=== PATIENT | female | born 1980 | race Caucasian/White ===

== ENCOUNTER 2017-07-06 13:55 | Inpatient (IN) | payer OTHER ==
[~2017-07-06] VITALS: Ht 165.1 cm; Wt 70.8 kg
[2017-07-06] MEDS ORDERED: PRENATAL TABLE1 EAC2 (14:42)
[2017-07-06 16:01] LABS: ABSOLUTE BASOPHIL COUNT 0 /CUMM (0.0-0.2); ABSOLUTE EOSINOPHIL COUNT 0.1 /CUMM (0.0-0.7); ABSOLUTE GRANULOCYTE CT 10.3 /CUMM (1.4-6.5); ABSOLUTE LYMPH COUNT 1.7 /CUMM (1.2-3.4); ABSOLUTE MONOCYTE COUNT 0.8 /CUMM (0.10-0.60); BASOPHIL % 0.4 % (0.0-2.0); EOSINOPHIL % 0.6 % (0-5); GRANULOCYTE % 79.9 % (42.2-75.2); MEAN CORPUSCULAR HGB 26.3 PG (27.0-31.0); MEAN CORPUSCULAR HGB CONC 33.6 G/DL (33.0-37.0); MEAN CORPUSCULAR VOLUME 78.2 FL (81.0-99.0); MEAN PLATELET VOLUME 9.4 FL (7.4-10.4); PLATELET COUNT 241 /CUMM (130-400); RBC DISTRIBUTION WIDTH 14.7 % (11.5-14.5); RED BLOOD CELL CT 4.22 /CUMM (4.20-5.40); WHITE BLOOD CELL COUNT 12.9 /CUMM (4.8-10.8)
--- NOTE | 2017-07-06 18:51 | History & Physical ---
General Information and HPI MD Statement: I have seen and personally examined MADINA ZAMBRANO and documented this H&P. The patient is a 37 year old female at [40] weeks and [5] days gestation who presented with a chief complaint of [LOF]. Source of Information: patient Exam Limitations: no limitations History of Present Illness: 37yo, 40 5/7wks, c/o LOF since 10PM yesterday, irregular ctxs, denies VB, reports GFM came in PM for evaluation. amnisure positive care started at 9 wks, AMA, otherwise uncomplicated course. GBS negative Allergies/Medications Allergies: Coded Allergies: No Known Allergies (07/06/17) Home Med list Vit No.130/Iron/FA ( Tablet) 27 MG IRON-800 MCG TABLET ADRENAL FAILURE (Reported) Compliance With Home Meds: GOOD Past History potato pancake frier History : 3 Para: 1 Last Menstrual Period: 09/24/2016 Estimated Delivery Date: 07/01/2017 Past potato pancake frier History: non-contributory Past Pregnancies Past Pregnancies: Date of Delivery: 03/24/2014 Gestational Age: 39 5/7wks Weight: [id number] Type of Delivery: vaginal Complications: none Medical History Blood Transfusion Hx: No Neurological: NONE EENT: NONE Cardiovascular: NONE Respiratory: NONE Gastrointestinal: NONE Hepatic: NONE Renal: NONE Musculoskeletal: NONE Psychiatric: NONE Endocrine: hypothyroidism Blood Disorders: NONE Cancer(s): NONE 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 Home Smoking Status: Former Smoker ETOH Use: denies use Illicit Drug Use: denies illicit drug use Review of Systems Review of Systems Constitutional: Reports: no symptoms. EENTM: Reports: no symptoms. Cardiovascular: Reports: no symptoms. Respiratory: Reports: no symptoms. GI: Reports: no symptoms. Genitourinary: Reports: see HPI. Musculoskeletal: Reports: no symptoms. Skin: Reports: no symptoms. Neurological/Psychological: Reports: no symptoms. Hematologic/Endocrine: Reports: no symptoms. Immunologic/Allergic: Reports: no symptoms. All Other Systems: Reviewed and Negative Exam & Diagnostic Data Last 24 Hrs of Vital Signs/I&O Intake & Output 07/06 1600 07/06 0800 07/06 0000 Intake Total Output Total Balance Patient 70.76 kg Weight Obstetric Exam Wgt Gained During : 34 lbs Pelvimetry: tested [id number] Dilation (cm): 3 Effacement (%): 80 Station: -2 Membranes: SROM Fluid: clear Fundal Height (cm): 40 Multiple Gestation? No Contractions: irregular Infant #1 - FHR Baseline: 130 Category: 1 Estimated Weight: 3500g Presentation: vertex Patient for Induction? No Physical Exam: VSS general: NAD Abdomen: gravid, soft, nontender. ext: DCT (-) Labs Blood Type & Rh: B positive Antibody Screen: negative Hct/Hgb & Platelets #1: 15/44.5%,PLT [id number] Hct/Hgb & Platelets #2: 10.6/32.7%,[id number] Rubella: immune VDRL #1: negative VDRL #2: neagtive HbsAg: negative HIV #1: negative HIV #2 negative 1 Hr P Group B Strep: negative Initial Ultrasound: IUP at 9 wks Anatomy Ultrasound: nl Genetic Testing: negative Last 24 Hrs of Labs/[place]: Laboratory Tests 07/06/17 1447: CBC w Diff NO MAN DIFF REQ, RBC 4.22, MCV 78.2 L, MCH 26.3 L, MCHC 33.6, RDW 14.7 H, MPV 9.4, Gran % 79.9 H, Lymphocytes % 12.9 L, Monocytes % 6.2, Eosinophils % 0.6, Basophils % 0.4, Absolute Granulocytes 10.3 H, Absolute Lymphocytes 1.7, Absolute Monocytes 0.8 H, Absolute Eosinophils 0.1, Absolute Basophils 0, Urine Color YEL, Urine Clarity CLEAR, Urine pH 6.5, Ur Specific [place] 1.010, Urine Protein NEG, Urine Ketones NEG, Urine Nitrite NEG, Urine Bilirubin NEG, Urine Urobilinogen 0.2, Ur Leukocyte Esterase NEG, Ur Microscopic SEDIMENT EXAMINED, Urine RBC 1-3, Urine WBC 1-3 H, Ur Epithelial Cells FEW, Urine Hemoglobin SMALL H, Urine Glucose NEG 07/06/17 1410: Membrane Rupture POSITIVE Assessment/Plan Assessment/Plan: 37yo, 40 5/7wks, SROM 1. admit pt, admission labs 2. pain management as needed 3. may consider pitocin augmentation, will monitor closely As Ranked By This Provider Problem List: 1. 2. SROM (spontaneous rupture of membranes) Core Measures Venous Thromboembolism VTE Risk Factors / No Mechanical VTE Prophylaxis d/t LowRisk-No Interven Req'd No VTE Pharm Prophylaxis d/t LowRisk-No Interven Req'd Attending MD Review Statement Attending Statement Attending MD Statement: examined this patient, discussed with family, discussed w/nursing
--- NOTE | 2017-07-07 07:04 | PN- OBGYN ---
Surgical Brief Attending Note Brief Attending Note: Pt c/o rectal pressure. on TOCO: ctxs q 3 min, FHR baseline 120, moderate variability, + acels, no decels cervix 9/80%/0 will continue current management, monitor closely
--- NOTE | 2017-07-07 09:45 | Labor & Delivery Summary ---
Delivery Summary Vaginal Delivery: Vaginal: spontaneous Episiotomy/Lacerations: Episiotomy/Lacerations: none Type: INTACT Repair: NONE Anesthesia: EPIDURAL Placenta: Placenta: spontanteous, normal, 3 vessel, nuchal cord (x_) (2) Anesthesia: block Baby's Weight: 8# 9OZ Apgars - 1 Min: 8 Apgars - 5 Min: 9 Additional Comments: NUCHAL ARM AND CORD X2 LOOSE GOOD PUSHING WITH EPIDURAL conrad POSITION INTACT PERINUM
[2017-07-07 10:33] VITALS: BP 124/84
[2017-07-08 08:18] LABS: ABSOLUTE BASOPHIL COUNT 0 /CUMM (0.0-0.2); ABSOLUTE EOSINOPHIL COUNT 0.2 /CUMM (0.0-0.7); ABSOLUTE GRANULOCYTE CT 6.6 /CUMM (1.4-6.5); ABSOLUTE LYMPH COUNT 2.4 /CUMM (1.2-3.4); ABSOLUTE MONOCYTE COUNT 0.8 /CUMM (0.10-0.60); BASOPHIL % 0.4 % (0.0-2.0); EOSINOPHIL % 1.7 % (0-5); GRANULOCYTE % 65.9 % (42.2-75.2); HEMATOCRIT 29.7 % (37-47); MEAN CORPUSCULAR HGB 26.1 PG (27.0-31.0); MEAN CORPUSCULAR HGB CONC 32.7 G/DL (33.0-37.0); MEAN CORPUSCULAR VOLUME 79.9 FL (81.0-99.0); MEAN PLATELET VOLUME 9.5 FL (7.4-10.4); PLATELET COUNT 214 /CUMM (130-400); RBC DISTRIBUTION WIDTH 15.2 % (11.5-14.5); RED BLOOD CELL CT 3.72 /CUMM (4.20-5.40); WHITE BLOOD CELL COUNT 9.9 /CUMM (4.8-10.8)
--- NOTE | 2017-07-08 09:17 | PN- Post Delivery/GYN ---
Subjective Subjective: doing well, no complaints, tolerate diet , void without difficulty, ambulating well Review of Systems Constitutional: Reports: no symptoms. EENTM: Reports: no symptoms. Cardiovascular: Reports: no symptoms. Respiratory: Reports: no symptoms. Gastrointestinal: Reports: no symptoms. Genitourinary: Reports: see HPI. Musculoskeletal: Reports: no symptoms. Skin: Reports: no symptoms. Neurological/Psychological: Reports: no symptoms. All Other Systems: Reviewed and Negative Objective Last 24 Hrs of Vital Signs/I&O Vital Signs Date Time Temp Pulse Resp B/P B/P Pulse O2 O2 Flow FiO2 Mean Ox Delivery Rate 07/07 1033 124/84 Physical Exam: VSS General: NAD CV RRR Lungs CTA B/L Abdomen: soft, nontender, uterus firm, fundus below umbilicus, lochia mild Ext: DCT (-) Current Medications: Current Medications Sig/Laurie Start time Last Medication Dose Route Stop Time Status Admin Acetaminophen 650 MG Q4P PRN 07/07 0930 AC 07/07 PO 1950 Docusate Sodium 100 MG BID PRN 07/07 0930 AC PO Hydroxyzine HCl 50 MG AT BEDTIME NEED.. 07/07 0930 AC PO Ibuprofen 800 MG Q6P PRN 07/07 0930 AC 07/08 PO 0449 Lactated Ringer's 1,000 ML Q8H 07/06 1445 DC 07/07 IV 0524 Magnesium Hydroxide 30 ML DAILY PRN 07/07 0930 AC PO Methylergonovine 0.2 MG .STK-MED ONE 07/07 1116 DC Maleate IM 07/07 1117 Oxytocin 20 UNITS Q5H 07/07 0930 DC 07/07 Lactated Ringer's 1,000 ML IV 07/07 1429 1030 Oxytocin 30 UNITS PER PROTOCL 07/07 0005 DC 07/06 Lactated Ringer's 500 ML IV 1808 Last 24 Hrs of Labs/[place]: Laboratory Tests 07/08/17 0618: CBC w Diff NO MAN DIFF REQ, RBC 3.72 L, MCV 79.9 L, MCH 26.1 L, MCHC 32.7 L, RDW 15.2 H, MPV 9.5, Gran % 65.9, Lymphocytes % 23.7, Monocytes % 8.3, Eosinophils % 1.7, Basophils % 0.4, Absolute Granulocytes 6.6 H, Absolute Lymphocytes 2.4, Absolute Monocytes 0.8 H, Absolute Eosinophils 0.2, Absolute Basophils 0 Assessment/Plan Assessment/Plan 37yo, s/p , PPD#1 1. encourage ambulation 2. RT PP care 3. pt request circumcision for the baby, R/B/A of circumcision d/w pt, she understand. all questions answered, informed consent obatined.
[2017-07-09] MEDS ORDERED: IBUPROFEN800 M1 PO (09:48)
[2017-07-09] MEDS ORDERED: FERROUS SULFAT325 M2 PO (09:48)
--- NOTE | 2017-07-09 09:53 | PN- Post Delivery/GYN ---
Subjective Subjective: feeling well Review of Systems Constitutional: Reports: no symptoms. Denies: chills, fever. EENTM: Denies: blurred vision, double vision, visual changes. Cardiovascular: Denies: chest pain, edema. Respiratory: Denies: cough. Gastrointestinal: Denies: abdominal pain. Neurological/Psychological: Denies: anxiety, depressed. Objective Last 24 Hrs of Vital Signs/I&O vss Physical Exam General Appearance Alert, Oriented X3, Cooperative, No Acute Distress Cardiovascular Regular Rate Lungs Clear to Auscultation Abdomen Soft, fundus firm Assessment/Plan Assessment/Plan PPD #2 vss afebrile plan d/c home
== END 2017-07-09 10:30 | DRG 775 ==
LOC: CBCO 13:55 → GNO 14:31
PROVIDERS: Obstetrics & Gynecology
PROC: 10E0XZZ Delivery of Products of Conception, External Approach (ICD-10-PCS; principal; 2017-07-07)
DX: O69.81X0 Labor and delivery complicated by cord around neck, without compression, not applicable or unspecified (principal); E03.9 Hypothyroidism, unspecified; Z37.0 Single live birth; Z3A.40 40 weeks gestation of pregnancy; O69.89X0 Labor and delivery complicated by other cord complications, not applicable or unspecified; Z87.891 Personal history of nicotine dependence; O99.284 Endocrine, nutritional and metabolic diseases complicating childbirth
CPT/HCPCS: GNOP; GNOS; 36415; 81001; 84112; 87086; J2210; J7120